=== PATIENT | male | born 1975 | race Caucasian/White ===

== ENCOUNTER 2018-12-05 08:49 | Outpatient (CLI) | payer BC ==
[2018-12-05 10:00] LABS: #Eosinphils 0.2 thou/uL (0.0-0.7); #Lymphocytes 1.5 thou/uL (1.20-3.40); #Monocytes 0.8 thou/uL (0.11-0.59); #Neutrophils 5.5 thou/uL (1.40-6.50); %Basophils 0.2 % (0.0-1.0); %Eosinophils 2.6 % (0.0-10.0); %Lymphocytes 18.8 % (21.0-51.0); %Monocytes 9.4 % (0.0-10.0); %Neutrophils 69.1 % (42.0-75.0); Hemoglobin 15.9 g/dL (14.0-18.0); Mean Corpuscular HGB CONC 33.3 g/dL (32.0-36.0); Mean Corpuscular Hemoglobin 28.7 pg (27.0-31.0); Mean Corpuscular Volume 86.3 fL (78.0-98.0); Mean Platelet Volume 7.8 fL (7.4-10.4); Platelet Count 273 thou/uL (130-400); RBC Distribution Width 13.4 % (11.5-14.5); Red Blood Cell (RBC) Count 5.52 mill/uL (4.70-6.10)
[2018-12-05 10:17] LABS: Anion Gap 11 mmol/L (10-20); BUN (Urea Nitrogen) 9 mg/dL (8.9-20.6); Calc. Creatinine Clearance 0 mL/min (70-130); Calcium 9.6 mg/dL (7.8-10.44); Carbon Dioxide 26 mmol/L (22-29); Chloride 105 mmol/L (98-107); Estimated GFR-MDRD 81; Glucose 100 mg/dL (70-105); Potassium 4.3 mmol/L (3.5-5.1); Sodium 138 mmol/L (136-145)
--- NOTE | 2018-12-06 17:15 | EKG ---
Test Reason : Blood Pressure : / mmHG Vent. Rate : 085 BPM Atrial Rate : 085 BPM P-R Int : 138 ms QRS Dur : 090 ms QT Int : 356 ms P-R-T Axes : 036 020 009 degrees QTc Int : 423 ms Normal sinus rhythm with sinus arrhythmia Normal ECG Confirmed by LISA QIU ([id number]) on 12/06/2018 5:14:43 PM Referred By: ROSALEE Confirmed By:LISA IQU
== END 2018-12-05 08:50 | disposition home or self-care (01) ==
LOC: LABBT 08:49
PROVIDERS: ATTEND Surgery
DX: Z01.818 Encounter for other preprocedural examination (principal); M79.5 Residual foreign body in soft tissue
CPT/HCPCS: 80048; 85025; 93005; 93010

== ENCOUNTER 2018-12-06 05:54 | Day surgery (SDC) | payer BC ==
[2018-12-05 09:06] VITALS: BMI 41.5
[2018-12-06] MEDS ORDERED: Bupivacaine/Epinephrine 0.25% 30 ML VIAL ONE (06:44)
[2018-12-06] MEDS ORDERED: Midazolam HCl 2 mg/2 ml Vial ONE (06:49)
[2018-12-06] MEDS ORDERED: Famotidine/PF 20 mg/2ml Vial ONE (06:49)
[2018-12-06] MEDS ORDERED: Ketorolac Tromethamine 30 MG/ML VIAL ONE (12:31)
[2018-12-06] MEDS ORDERED: PROPOFOL 200 MG/20 ML VIAL ONE (12:31)
[2018-12-06] MEDS ORDERED: Lidocaine 1% PF 5 ML VIAL ONE (12:31)
[2018-12-06] MEDS ORDERED: PHENYLEPHRINE-NS 100 MCG/ML 10 ML SYRINGE ONE (12:31)
[2018-12-06] MEDS ORDERED: Ondansetron PF 4 MG/2 ML Vial ONE (12:31)
[2018-12-06] MEDS ORDERED: Succinylcholine Chloride 20 MG/ML 10 ml SYRINGE FS ONE (12:31)
[2018-12-06] MEDS ORDERED: Rocuronium Bromide 10 MG/ML (10ML VIAL) ONE (12:31)
--- NOTE | 2018-12-06 15:12 | OP ---
DATE OF PROCEDURE: 12/06/2018 PREOPERATIVE DIAGNOSIS: Chronic foreign body and chronic open wound. POSTOPERATIVE DIAGNOSIS: Chronic foreign body and chronic open wound. PROCEDURE PERFORMED: Exploration of former midline incision for chronic foreign body and removal of chronic foreign body. ANESTHESIA: General. ESTIMATED BLOOD LOSS: Minimal. COMPLICATIONS: None. SPECIMEN: None. FINDINGS: There is old Prolene suture material at the base of this chronic open wound. It is all removed. TECHNIQUE: The patient was taken to the operating room and laid supine on the operating room table. After general anesthetic was obtained, the abdomen was shaved, prepped, and draped in a sterile fashion. An elliptical incision was used ellipse out the former midline incision and the chronic open wound all the way down to the fascia, where a suture granuloma with Prolene suture was found. The Prolene suture was removed. This leaves a small fascial defect, which was closed using interrupted PDS absorbable suture. The wound was irrigated copiously. There was no purulent material. Local anesthetic was infiltrated around the wound and the wound was closed using 3-0 Vicryl, 4-0 Monocryl, and Dermabond. The patient was sent to Recovery in stable condition. All instrument counts, needle counts, and lap counts were correct. Job ID: [id number]
== END 2018-12-06 10:40 | disposition home or self-care (01) ==
LOC: SDC 05:54
PROVIDERS: ATTEND Surgery
PROC: 0JC80ZZ Extirpation of Matter from Abdomen Subcutaneous Tissue and Fascia, Open Approach (ICD-10-PCS; principal; 2018-12-06)
DX: M79.5 Residual foreign body in soft tissue (principal); Z88.0 Allergy status to penicillin; Z88.5 Allergy status to narcotic agent; Z91.041 Radiographic dye allergy status
CPT/HCPCS: J0690; J2250; S0028

== ENCOUNTER 2020-02-13 07:35 | Outpatient (CLI) | payer BC ==
--- NOTE | 2020-02-13 09:22 | MRI ---
MRI cervical spine noncontrast: 02/13/2020 HISTORY: 44-year-old male with cervical radiculopathy, cervical disc disorder, unspecified cervical region, an d chronic pain syndrome COMPARISON: None FINDINGS: All images are degraded by patient motion, some worse than others. Vertebral body heights are [place]. Cervical spinal cord is normal in size and signal. Moderate disc space narrowing at C6-7. Mild to moderate disc space narrowing at all other levels except C2-3, where there is no disc space narrow ing. Mild to moderate facet DJD at C7-T1. No high-grade facet DJD at any level. C1-2: No central stenosis C2-3: Essentially normal. C3-4: Small broad-based disc protrusion or disc-osteophyte complex abuts ventral surface of spinal co rd. Mild central stenosis. Small bilateral uncinate process osteophytes. Mild right and no left neural foraminal stenosis. C4-5: Broad-based disc protrusion versus disc-osteophyte complex approaches ventral surface of spinal cord. Mild central spinal canal stenosis. Moderate-sized bilateral uncinate process osteophytes cause moderate bilateral neural foraminal stenosis, left worse than right. C5-6: Broad-based disc protrusion versus disc-osteophyte complex protrudes into spinal canal, asymmet rically greater on the left than right. Small to moderate-sized bilateral uncinate process osteophytes. Moderate bilateral neural foraminal stenosis. C6-7: Broad-based disc-osteophyte complex abuts ventral surface of spinal cord. Moderate central spin al canal stenosis. Moderate size right and large left uncinate process osteophytes. Severe bilateral neural foraminal stenosis, left worse than right. C7-T1: No central spinal canal stenosis. Small to moderate bilateral uncinate process osteophytes. Mi ld to moderate bilateral neural foraminal stenosis. IMPRESSION: 1.) Mild to moderate cervical spondylosis including mild to moderate degenerative disc disease. 2) high-grade bilateral neural foraminal stenosis at a few levels, especially at C6-7.
--- NOTE | 2020-02-13 11:37 | RAD ---
Exam: 2 views lumbar spine HISTORY: Back and bilateral leg pain FINDINGS: There is kyphosis centered at the T12-L1 level. Prominent anterior osteophytes head T10-T11 , T12-L1, L1-L2 and L2-L3. Vertebral body heights are maintained. No fracture. Visualized sacrum and bony pelvis are intact. Spondylolisthesis: 4.3 mm of retrolisthesis of L2 upon L3 and 4.4 mm of retrolisthesis of L4 upon L5. Mild to moderate loss of disc space height at L1-L2. Moderate loss of disc space height at T12-L1. IMPRESSION: Multilevel degenerative changes of the lumbar spine. Further evaluation with MRI may be b eneficial.
--- NOTE | 2020-02-13 13:24 | RAD ---
EXAM: XR Cerv Sp Ap Lat STANDARD PROVIDED CLINICAL HISTORY: Chronic neck pain. Cervical radiculopathy. Patient has a left shoulder and neck pain. COMPARISON: None FINDINGS: The odontoid view is limited due to technique which limits osseous detail; although, there does appea r to be normal alignment of lateral masses of C1 and C2. C1 to the cervicothoracic junction is seen on the lateral view. Vertebral body heights are within normal limits. There is mild narrowing of the C6-7 intervertebral disc space with osteophytes present at this level. Mild osteophyte formation is also seen at the C3-4 and C4-5 levels. No fracture or subluxation is seen involving the cervical spin e. Prevertebral soft tissues have a normal appearance. IMPRESSION: Degenerative changes in the cervical spine greatest at the C6-7 level.
== END 2020-02-13 07:36 | disposition home or self-care (01) ==
LOC: TBSIIMAG 07:35
PROVIDERS: ATTEND Family Medicine
DX: M50.10 Cervical disc disorder with radiculopathy, unspecified cervical region (principal); G89.4 Chronic pain syndrome; M47.817 Spondylosis without myelopathy or radiculopathy, lumbosacral region; M47.22 Other spondylosis with radiculopathy, cervical region; M47.816 Spondylosis without myelopathy or radiculopathy, lumbar region; M48.02 Spinal stenosis, cervical region
CPT/HCPCS: 72040; 72100; 72141